=== PATIENT | male | born 1995 | race Caucasian/White ===

== ENCOUNTER 2018-12-30 11:08 | Emergency (ER) | payer OTHER ==
--- NOTE | 2018-12-30 11:22 | C.PDOC ---
History Of Present Illness 23 year old male transported to ED with complaint of generalized tremors and difficulty walking since this morning. Patient is a poor historian and is limited due to his clinical condition. Patient has a history of alcohol abuse and states that his last drink was this morning at 0700. Patient denies daily alcohol abuse, history of prior withdrawal seizure, and other drug use. Patient denies pain. VIA TRANS POOR HISTORIAN, LIMITED CLIN COND GEN TREMORS, DIFF WALKING THIS MORNING. HO ETOH ABUSE, PS LAST DRINK THIS MORNING 0700. DENIES DAILY ALCOHOL ABUSE. DENIES HO PRIOR WITHDRAWAL SZ, OTHER DRUG USE. DENIES PAIN ROS LIMITED EXAM MOD DIST HEENT NO TONGUE FASCIC ANICTERIC ATRAUM GAIT UNSTEADY NEURO GEN TREMORS NO GROSS FOCAL DEF PSYCH CALM COOPERATIVE NO ACUTE INTOX NO ACTIVE PSYCHOSIS EXT AROM WO DIFF ATRAUM WARM DRY CV RRR TACHY REMAINDER NEG <Michelle Lynch - Last Filed: 12/30/18 13:03> History Per: Patient History/Exam Limitations: clinical condition Onset/Duration Of Symptoms: Hrs Current Symptoms Are (Timing): Still Present <SyedMichelle - Last Filed: 12/30/18 13:03> <Celine Burgos - Last Filed: 12/30/18 17:59> Time Seen by Provider: 12/30/18 11:17 Past Medical History Reviewed: Historical Data, Nursing Documentation, Vital Signs Surgical History: No Surg Hx Family History: States: Unknown Family Hx <Michelle Lynch - Last Filed: 12/30/18 13:03> Vital Signs: Last Vital Signs Temp 100.2 F H 12/30/18 11:43 Pulse 118 H 12/30/18 13:37 Resp 16 12/30/18 13:37 BP 133/79 12/30/18 13:37 Pulse Ox 96 12/30/18 13:37 <Celine Burgos - Last Filed: 12/30/18 17:59> Review Of Systems Constitutional: Positive for: Other (generalized tremors, difficulty walking) <SyedMichelle - Last Filed: 12/30/18 13:03> Physical Exam - Physical Exam Appears: Non-toxic, Other (moderate distress) Skin: Normal Color, Warm, Dry Head: Atraumatic, Normacephalic Eye(s): bilateral: Other (anicteric) Tongue: No Other (tongue fasciculations) Neck: Normal ROM, Supple Chest: Symmetrical, No Deformity Cardiovascular: Rhythm Regular, Other (Tachycardic) Respiratory: No Accessory Muscle Use, No Rales, No Rhonchi, No Wheezing, Other (NARD) Extremity: Capillary Refill (<2 seconds) Extremity: Bilateral: Atraumatic Neurological/Psych: Oriented x3, Normal Speech, Normal Cognition, Normal Cranial Nerves, Normal Sensation, Other (calm, cooperative, no acute intoxication, no active psychosis; generalized tremors) Gait: Unsteady <Michelle Lynch - Last Filed: 12/30/18 13:03> ED Course And Treatment - Laboratory Results Result Diagrams: 12/30/18 11:30 12/30/18 11:30 - Radiology CXR: Interpreted by Me CXR Interpretation: Yes: No Acute Disease - CT Scan/US Head CT Other Rad Studies (CT/US): Interpreted By Me, Read By Radiologist CT/US Interpretation: IMPRESSION: No acute intracranial hemorrhage. There appears to be some mild left mid and superior temporoparietal scalp swelling. Progress Note: VBG ordered for patient. Head CT, EKG, and CXR ordered for patient. Labs ordered with CBC, Glucose POC, UA, and flu a/b. Patient given Ativan IVP and IV fluids. <Michelle Lynch - Last Filed: 12/30/18 13:03> - Laboratory Results Result Diagrams: 12/30/18 11:30 12/30/18 11:30 Lab Results: pO2 107 mm/Hg (30-55) H 12/30/18 11:40 VBG pH 7.43 (7.32-7.43) 12/30/18 11:40 VBG pCO2 37 mmHg (40-60) L 12/30/18 11:40 VBG HCO3 25.3 mmol/L 12/30/18 11:40 VBG Total CO2 25.7 mmol/L (22-28) 12/30/18 11:40 VBG O2 Sat (Calc) 98.2 % (40-65) H 12/30/18 11:40 VBG Base Excess 0.5 mmol/L (0.0-2.0) 12/30/18 11:40 VBG Potassium 3.4 mmol/L (3.6-5.2) L 12/30/18 11:40 Sodium 141.0 mmol/l (132-148) 12/30/18 11:40 Chloride 107.0 mmol/L (98-107) 12/30/18 11:40 Glucose 119 mg/dl (75-110) H 12/30/18 11:40 Lactate 2.5 mmol/L (0.7-2.1) H 12/30/18 11:40 Total Bilirubin 0.4 mg/dL (0.2-1.3) 12/30/18 11:30 AST 44 U/L (17-59) 12/30/18 11:30 ALT 68 U/L (21-72) 12/30/18 11:30 Alkaline Phosphatase 192 U/L (38-126) H 12/30/18 11:30 Total Protein 8.6 g/dL (6.3-8.3) H 12/30/18 11:30 Albumin 5.4 g/dL (3.5-5.0) H 12/30/18 11:30 Globulin 3.2 gm/dL (2.2-3.9) 12/30/18 11:30 Albumin/Globulin Ratio 1.7 (1.0-2.1) 12/30/18 11:30 Urine Color Straw (YELLOW) 12/30/18 11:59 Urine Clarity Clear (Clear) 12/30/18 11:59 Urine pH 6.0 (5.0-8.0) 12/30/18 11:59 Ur Specific [place] 1.004 (1.003-1.030) 12/30/18 11:59 Urine Protein Negative mg/dL (NEGATIVE) 12/30/18 11:59 Urine Glucose (UA) Normal mg/dL (Normal) 12/30/18 11:59 Urine Ketones Negative mg/dL (NEGATIVE) 12/30/18 11:59 Urine Blood Negative (NEGATIVE) 12/30/18 11:59 Urine Nitrate Negative (NEGATIVE) 12/30/18 11:59 Urine Bilirubin Negative (NEGATIVE) 12/30/18 11:59 Urine Urobilinogen Normal mg/dL (0.2-1.0) 12/30/18 11:59 Ur Leukocyte Esterase Neg Girish/uL (Negative) 12/30/18 11:59 Urine WBC (Auto) < 1 /hpf (0-5) 12/30/18 11:59 Progress Note: 2:40- Patient sleeping comfortably, no current tremors noted. Heart rate improved, 90s-100bpm. Patient is c/p PO Librium 100mg and IV Ativan 2mg. VBG repeated. 6:00pm- Patient is AAOx3, able to ambulate normally in the ED. He continues to have mild tachycardia. Expressed concern for alcohol withdrawal and possible impending seizure, however patient is adamant he feels well and wants to be discharged. Patient has signed out against my medical advice, and understands that be doing so he risks worsening of his current condition, seizure, alcohol withdrawal and possibly even . He understands he should return to ED if symptoms worsen. <Celine Burgos - Last Filed: 12/30/18 17:59> Progress - Re-Evaluation Re-evaluation Note: 12/30/18 12:29 RECUR TACHY NEURO INTACT 12/30/18 12:50 D/W CRISIS GAVIN NO MALE DETOX BEDS AVAIL - Data Reviewed Data Reviewed: Lab, Diagnostic imaging, EKG, Old records - Critical Care Citical Care: Excluding Proc Time Critical Care Time: 90 minutes <Michelle Lynch - Last Filed: 12/30/18 13:03> Disposition Counseled Patient/Family Regarding: Studies Performed, Diagnosis - Disposition Disposition Time: 13:00 <Michelle Lynch - Last Filed: 12/30/18 13:03> Counseled Patient/Family Regarding: Studies Performed, Diagnosis, Need For Followup - Disposition Disposition Time: 18:00 <Celine Burgos - Last Filed: 12/30/18 17:59> - Disposition Referrals: [facility] [Outside] Disposition: AGAINST MEDICAL ADVICE Condition: STABLE Instructions: Alcohol Abuse and Alcoholism (DC), Alcohol Withdrawal (ED), Rachael nagy Against Medical Advice Forms: (AMA) Informed Refusal Print Language: SYRIAN - Clinical Impression Clinical Impression: Alcohol withdrawal - Scribe Statement The provider has reviewed the documentation as recorded by the Scribe (Lakia Short) All medical record entries made by the Scribe were at my direction and personally dictated by me. I have reviewed the chart and agree that the record accurately reflects my personal performance of the history, physical exam, medical decision making, and the department course for this patient. I have also personally directed, reviewed, and agree with the discharge instructions and disposition. <Michelle Lynch - Last Filed: 12/30/18 13:03> Physician Patient Turnover Patient Signed Over To: Celine Burgos Handoff Comments: FU REPEAT VBG, REEVAL, DISPO <Michelle Lynch - Last Filed: 12/30/18 13:03>
[2018-12-30 11:37] LABS: BASO % 0.5 % (0.0-2.0); EOS # 0.1 K/uL (0.0-0.7); EOS % 0.6 % (0.0-4.0); HEMOGLOBIN 16.4 g/dL (12.0-18.0); LYMPH # 2.3 K/uL (1.0-4.3); LYMPH % 22.6 % (20.0-40.0); MEAN CELL VOLUME 84.7 fL (80.0-94.0); MEAN CORPUSCULAR HEMOGLOBIN 28.9 pg (27.0-31.0); MEAN CORPUSCULAR HGB CONC 34.1 g/dL (33.0-37.0); MEAN PLATELET VOLUME 8.9 fL (7.2-11.7); MONO # 0.7 K/uL (0.0-0.8); MONO % 7.3 % (0.0-10.0); NEUT # 6.9 K/uL (1.8-7.0); NRBC % 0.1 % (0.0-2.0); RBC 5.66 Mil/uL (4.40-5.90); RED CELL DISTRIBUTION WIDTH 14.3 % (11.5-14.5); WHITE BLOOD COUNT 10.1 K/uL (4.8-10.8)
[2018-12-30 11:45] LABS: VENOUS BLOOD GAS BASE EXCESS 0.5 mmol/L (0.0-2.0); VENOUS BLOOD GAS PCO2 37 mmHg (40-60); VENOUS BLOOD GAS PO2 107 mm/Hg (30-55); VENOUS BLOOD PH 7.43 (7.32-7.43)
[2018-12-30] MEDS ORDERED: Sodium Chloride 0.9% 2,000 ML IV ONE (11:57)
[2018-12-30 11:58] LABS: ALB/GLOB RATIO 1.7 (1.0-2.1); ALBUMIN 5.4 g/dL (3.5-5.0); ALT/SGPT 68 U/L (21-72); AST/SGOT 44 U/L (17-59); BLOOD UREA NITROGEN 11 mg/dL (9-20); CALCIUM 9.8 mg/dl (8.6-10.4); GFR NON-AFRICAN AMERICAN > 60
[2018-12-30 12:06] LABS: URINE BILIRUBIN NEGATIVE (NEGATIVE); URINE BLOOD NEGATIVE (NEGATIVE); URINE CLARITY Clear (Clear); URINE COLOR Straw (YELLOW); URINE GLUCOSE (UA) NORMAL (Normal); URINE LEUKOCYTE ESTERASE NEG Leu/uL (Negative); URINE PROTEIN NEGATIVE (NEGATIVE); URINE UROBILINOGEN NORMAL mg/dL (0.2-1.0)
[2018-12-30] MEDS ORDERED: Sodium Chloride 0.9% 2,000 ML ONE (12:18)
--- NOTE | 2018-12-30 12:30 | RAD ---
Date of service: 12/30/2018 HISTORY: Sepsis Patient COMPARISON: No prior TECHNIQUE: 1 view obtained. FINDINGS: LUNGS: Poor inspiration with low lung volumes, crowded bronchovascular markings and mild bibasilar atelectasis. PLEURA: No significant pleural effusion identified, no pneumothorax apparent. CARDIOVASCULAR: No aortic atherosclerotic calcification present. Normal cardiac size. No pulmonary vascular congestion. OSSEOUS STRUCTURES: No significant abnormalities. VISUALIZED UPPER ABDOMEN: Normal. OTHER FINDINGS: None. IMPRESSION: No active disease.
[2018-12-30 12:32] LABS: BARBITURATES, UR NEGATIVE (NEGATIVE); BENZODIAZEPINES, UR NEGATIVE (NEGATIVE); OPIATES, UR NEGATIVE (NEGATIVE); PHENCYCLIDINE, UR NEGATIVE (NEGATIVE)
--- NOTE | 2018-12-30 12:40 | CT ---
Date of service: 12/30/2018 PROCEDURE: CT HEAD WITHOUT CONTRAST. HISTORY: Tremors with difficulty walking. COMPARISON: No prior study available comparison. TECHNIQUE: Axial computed tomography images were obtained through the head/brain without intravenous contrast. Radiation dose: Total exam DLP = 911.76 mGy-cm. This CT exam was performed using one or more of the following dose reduction techniques: Automated exposure control, adjustment of the mA and/or kV according to patient size, and/or use of iterative reconstruction technique. FINDINGS: HEMORRHAGE: No acute parenchymal, subarachnoid or extra-axial hemorrhage. BRAIN: No mass effect or edema. No atrophy or chronic microvascular ischemic changes. VENTRICLES: No obstructive CALVARIUM: Unremarkable. Questionable mild left mid and superior temporoparietal scalp swelling. PARANASAL SINUSES: The left maxillary antrum is is slightly smaller than the right side and exhibits mild mucosal thickening. Minor mucosal thickening also seen within the right maxillary antrum and a few ethmoid air cells. Right chamber of the frontal sinuses a trended-hypoplastic.. MASTOID AIR CELLS: Unremarkable as visualized. No inflammatory changes. OTHER FINDINGS: None. IMPRESSION: No acute intracranial hemorrhage. There appears to be some mild left mid and superior temporoparietal scalp swelling.
[2018-12-30 15:31] LABS: VENOUS BLOOD GAS BASE EXCESS -1.3 mmol/L (0.0-2.0); VENOUS BLOOD GAS PCO2 43 mmHg (40-60); VENOUS BLOOD GAS PO2 61 mm/Hg (30-55); VENOUS BLOOD PH 7.36 (7.32-7.43)
[2018-12-30] MEDS ORDERED: Sodium Chloride 0.9% 500 ML IV ONE ×2 (16:14→16:26)
[2018-12-30 16:49] VITALS: RESP 21
[2018-12-30 18:05] VITALS: BP 120/79; PULSE 109; TEMP 98.6; O2SAT 96
--- NOTE | 2018-12-31 18:24 | CARD ---
APPROVED REPORT Date of service: 12/30/2018 EKG Measurement Heart [id number] <Conclusion> Sinus tachycardia Otherwise normal ECG
== END 2018-12-30 16:15 | disposition left against medical advice (07) ==
LOC: C.ER 11:08
DX: F10.239 Alcohol dependence with withdrawal, unspecified (principal); Y90.6 Blood alcohol level of 120-199 mg/100 ml
CPT/HCPCS: 70450; 71045; 80053; 80320; 80324; 80345; 80346; 80349; 80353; 80358; 80361; 81001; 82803; 82948; 83735; 83992; 84100; 85025; 87804; 93005; 96361; 96374; 96376; 99285; J2060; J7030; J7040